=== PATIENT | female | born 1950 ===

== ENCOUNTER 2017-05-25 09:37 | Day surgery (SDC) | payer OTHER ==
[2017-05-25] MEDS ORDERED: Lidocaine 2% Inj (20ml) ONE (10:18)
[2017-05-25] MEDS ORDERED: Midazolam 2 MG/2 ML VIAL ONE (10:18)
[2017-05-25] MEDS ORDERED: Iodixanol 320 MG/ML 200 ML BOTTLE IV ONE (10:19)
[2017-05-25] MEDS ORDERED: Iohexol 350mgl/ml 50 ML ONE (11:06)
[2017-05-25] MEDS ORDERED: Sodium Chloride 0.9% 1,000 ML IV SCH (15:30)
[2017-05-25 15:43] VITALS: RESP 18; TEMP 98
[2017-05-25 16:33] VITALS: BP 110/56; PULSE 75
--- NOTE | 2017-05-25 18:49 | CARD ---
APPROVED REPORT EKG Measurement Heart [id number] <Conclusion> Normal sinus rhythm Inferior infarct, age undetermined Anterior infarct, age undetermined ST & T wave abnormality, consider infero- lateral ischemia Abnormal ECG
--- NOTE | 2017-05-28 10:54 | CARD ---
APPROVED REPORT HISTORY disease, hypertension , dyslipidemia . INDICATION The indication(s) include : non-STEMI . CASE TECHNIQUE The was infiltrated with 2% Lidocaine subcutaneous anesthesia. A 6 Fr Coronary angiography was performed using coronary diagnostic catheters. The left coronary system was accessed and visualized with a Diagnostic catheter. The right coronary system was accessed and visualized with a Diagnostic catheter. The left ventricle was accessed and visualized with a Diagnostic catheter. Left ventriculogram was performed in PALMA projection. Closure device was deployed with a 8 Fr Angio-Seal without any complications. The left main coronary artery is a medium size vessel . There is a 0% stenosis . The left anterior descending artery is a medium size vessel . There is a 75% stenosis in the mid segment. The circumflex artery is a large size vessel . There is a 30% stenosis in the mid segment. There is a 90% stenosis in the proximal segment. and mid segment The right coronary artery is a large size vessel . There is a 90% stenosis . Left Ventricle The left ventricle is Normal in size with normal contractility. The left ventricular ejection fraction is estimated to be 55%. PCI Technique Lesion Anticoagulation was achieved with Heparin. Percutaneous coronary intervention was performed on the proximal right coronary arterymid right coronary artery. The lesion stenosis prior to intervention was 90% with SARBJIT 2 flow. A Guide Catheter was used to engage the GR 4 with side hole ostium. A 0.014 x 190 cm [employer] [place] II J Tip Interventional Guidewire was used to cross the lesion. BALLOON DILATION A Balloon catheter 1.5 x 10 mm Sprinter RX was inserted and inflated up to 4.00atm for 25seconds. No significant improvement in flow Conclusion Double vessel disease. LAD mid vessel 70-80% calcified. LCx is non-obstructive. RCA proximal and mid stent with 90% in-stent re-stenosis. Normal LV systolic function. Unsuccessful PCI of RCA. Recommendations Daily ASA with Plavix for at least one year Aggressive Medical Therapy
== END 2017-05-25 20:06 | disposition short-term general hospital (02) ==
LOC: CATH 09:37 → 2RSO 12:00 → CATH 20:06
PROVIDERS: ATTEND Internal Medicine
DX: I25.10 Atherosclerotic heart disease of native coronary artery without angina pectoris (principal); E78.5 Hyperlipidemia, unspecified; I10 Essential (primary) hypertension
CPT/HCPCS: 85175; 92920; 93005; 93458; 99152; 99153; C1725 ×4; C1760 ×2; C1769 ×4; C1887 ×3; C2629; J1644 ×2; J2250; J3010; J7030; Q9967